=== PATIENT | female | born 1980 | race Caucasian/White ===

== ENCOUNTER 2018-07-15 14:40 | Outpatient (CLI) | payer OTHER ==
--- NOTE | 2018-07-15 16:48 | MRI ---
MRI OF THE LEFT KNEE: Date: 07/15/18 PROVIDED CLINICAL HISTORY: Left knee pain status post injury. FINDINGS: The anterior cruciate ligament, posterior cruciate ligament, medial collateral ligament, and lateral collateral ligamentous complex demonstrate an intact MR appearance, as does the extensor mechanism. The medial and lateral menisci demonstrate no evidence for tear. No focal articular cartilage defect is apparent. There is mild signal inhomogeneity involving the pat ellar articular cartilage. The amount of fluid within the knee joint appears physiologic. 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 No focal concerning regional marrow signal abnormality is apparent. There is patchy increased signal intensity on fluid sensitive sequences involving the medial and lateral heads of the gastrocnemius mu scle suggesting low grade muscular strain. There is mild edema within the lateral infrapatellar fat. Patella merari is noted. IMPRESSION: 1. Edema within the lateral infrapatellar fat suggests a patellar tracking abnormality. 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 2. Low grade muscular strain involving gastrocnemius muscle. POS: OFF
== END 2018-07-15 14:41 | disposition home or self-care (01) ==
LOC: SCSMRI 14:40
PROVIDERS: ATTEND Family Medicine
DX: S89.92XA Unspecified injury of left lower leg, initial encounter (principal); S86.912A Strain of unspecified muscle(s) and tendon(s) at lower leg level, left leg, initial encounter; R60.0 Localized edema

== ENCOUNTER 2019-01-20 12:10 | Outpatient (CLI) | payer OTHER ==
--- NOTE | 2019-01-20 14:24 | MRI ---
MRI Lower Ext Jt Lt WO Con HISTORY: Injured knee in May still with persistent pain. COMPARISON: 07/15/2018 exam. FINDINGS: The anterior and posterior cruciate ligaments are intact. The medial as well as lateral menisci are normal in shape and appearance. The medial and lateral collateral ligaments and iliotibial band regions are normal. The patellar articular cartilage is intact. Edema changes are once again noted along the lateral crystal in of Hoffa's fat pad. The medial lateral patellar retinaculum and quadriceps and patellar tendons are normal. IMPRESSION: 1. 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 Changes are similar to the previous exam.
== END 2019-01-20 12:11 | disposition home or self-care (01) ==
LOC: SCSMRI 12:10
PROVIDERS: ATTEND Family Medicine
DX: M94.262 Chondromalacia, left knee (principal); M22.8X2 Other disorders of patella, left knee

== ENCOUNTER 2021-03-14 08:26 | Outpatient (CLI) | payer BC | END 2021-03-14 08:27 | disposition home or self-care (01) | LOC: BICMRI 08:26 | PROVIDERS: ATTEND Orthopaedic Surgery | DX: M23.92 Unspecified internal derangement of left knee (principal); S83.412A Sprain of medial collateral ligament of left knee, initial encounter; M22.2X2 Patellofemoral disorders, left knee ==

== ENCOUNTER 2023-04-15 11:19 | Outpatient (CLI) | payer BC | END 2023-04-15 11:20 | disposition home or self-care (01) | LOC: SCSRAD 11:19 | PROVIDERS: ATTEND Family Medicine | DX: S59.901A Unspecified injury of right elbow, initial encounter (principal) ==